=== PATIENT | female | born 1970 | race Caucasian/White ===

== ENCOUNTER 2020-05-30 12:44 | Inpatient (IN) | payer OTHER ==
[~2020-05-30 12:44] MED LIST: LISINOPRIL-HCT1 EAC1 PO; LOVAZA1 GM PO; ZYRTEC10 M3 PO
[2020-05-30 13:41] LABS: BASOPHIL 0.2 % (0-2); EOSINOPHIL 0.1 % (0-5); HCT 40.2 % (37.0-47.0); HGB 13.6 g/dl (12.5-16.0); LYMPHOCYTE 4.4 % (15-48); MCH 31.7 pg (25.0-31.0); MCHC 33.8 g/dL (32.0-36.0); MCV 93.7 fL (78.0-100.0); MONOCYTE 6.4 % (0-12); MPV 9.9 fL (6.0-9.5); NEUTROPHIL 87.9 % (41-80); NRBC 0; PLT 205 K/uL (150-400); RBC 4.29 M/uL (4.20-5.40); RDW 13.3 % (11.5-14.0); WBC 15.9 K/uL (4.0-10.5)
[2020-05-30 14:02] LABS: BUN/CREAT RATIO (CALC) 16.8 RATIO; CREATININE 0.95 mg/dL (0.51-0.95)
[2020-05-30 14:17] LABS: CORONAVIRUS 2019 SARS-COV-2 NEGATIVE (NEGATIVE); INFLUENZA A NAA NEGATIVE (NEGATIVE)
[2020-05-30 15:33] LABS: BILIRUBIN NEGATIVE (NEGATIVE); BLOOD 3+ Ery/uL (NEGATIVE); CLARITY CLEAR (CLEAR); COLOR YELLOW (YELLOW); GLUCOSE (U) 3+ mg/dL (NORMAL); LEUKOCYTES 2+ Leu/uL (NEGATIVE); NITRITE POSITIVE (NEGATIVE); PROTEIN 2+ mg/dL (NEGATIVE)
[2020-05-30 15:40] LABS: BACTERIA 3+; URINARY RBC 20-50; URINARY WBC TNTC
[2020-05-30] MEDS ORDERED: SINGULAIR10 MG PO (20:13)
[2020-05-30] MEDS ORDERED: FLEXERIL5 MG PO (20:14)
[2020-05-30] MEDS ORDERED: VITAMIN D3 (20:15)
[2020-05-30] MEDS ORDERED: METFORMIN HCL500 M3 PO (20:16)
[2020-05-31 16:27] LABS: HCT 36.7 % (37.0-47.0); HGB 11.7 g/dl (12.5-16.0); MCH 31.6 pg (25.0-31.0); MCHC 31.9 g/dL (32.0-36.0); MCV 99.2 fL (78.0-100.0); RBC 3.7 M/uL (4.20-5.40); RDW 13.6 % (11.5-14.0); WBC 11.7 K/uL (4.0-10.5)
[2020-05-31 16:54] LABS: LACTIC ACID 0.6 mmol/L (0.4-1.9)
[2020-05-31 17:00] LABS: ALBUMIN 2.7 g/dL (3.4-5.0); BILIRUBIN - TOTAL 0.3 mg/dL (0.2-1.0); BUN/CREAT RATIO (CALC) 16.5 RATIO; CREATININE 0.79 mg/dL (0.51-0.95); GLOBULIN (CALCULATION) 4.4 g/dL; POTASSIUM 4.3 mmol/L (3.5-5.1); TOTAL PROTEIN 7.1 g/dL (6.4-8.2)
[2020-06-01 05:04] LABS: HCT 36.5 % (37.0-47.0); HGB 11.6 g/dl (12.5-16.0); MCH 31.5 pg (25.0-31.0); MCHC 31.8 g/dL (32.0-36.0); MCV 99.2 fL (78.0-100.0); MPV 9.9 fL (6.0-9.5); RBC 3.68 M/uL (4.20-5.40); RDW 13.4 % (11.5-14.0); WBC 10.5 K/uL (4.0-10.5)
[2020-06-01 05:25] LABS: BUN/CREAT RATIO (CALC) 18.4 RATIO; CREATININE 0.76 mg/dL (0.51-0.95); POTASSIUM 4.4 mmol/L (3.5-5.1)
[2020-06-02 06:23] LABS: BASOPHIL 0.2 % (0-2); EOSINOPHIL 0 % (0-5); HCT 35.6 % (37.0-47.0); HGB 11.5 g/dl (12.5-16.0); LYMPHOCYTE 14.7 % (15-48); MCH 31.6 pg (25.0-31.0); MCHC 32.3 g/dL (32.0-36.0); MCV 97.8 fL (78.0-100.0); MONOCYTE 7.1 % (0-12); MPV 9.9 fL (6.0-9.5); NEUTROPHIL 77.1 % (41-80); NRBC 0; PLT 207 K/uL (150-400); RBC 3.64 M/uL (4.20-5.40); RDW 13.2 % (11.5-14.0); WBC 9.2 K/uL (4.0-10.5)
[2020-06-02 07:02] LABS: BUN/CREAT RATIO (CALC) 19.7 RATIO; C-REACTIVE PROTEIN 6.2 mg/dL (<=0.90); CREATININE 0.66 mg/dL (0.51-0.95); POTASSIUM 4.7 mmol/L (3.5-5.1)
[2020-06-02] MEDS ORDERED: PREDNISONE 20MG20 MG PO ×2 (07:57→12:24)
[2020-06-02] MEDS ORDERED: LEVAQUIN500 MG PO ×2 (08:00→12:24)
== END 2020-06-02 11:58 | disposition home or self-care (01) | DRG 871 ==
LOC: FER 12:44 → FMS 17:51 → FTCU 05-31 10:32
PROVIDERS: Allergy & Immunology Allergy; Emergency Medicine; ADMIT Hospitalist
PROC: 02HV33Z Insertion of Infusion Device into Superior Vena Cava, Percutaneous Approach (ICD-10-PCS; principal; 2020-05-31)
PROC: B548ZZA Ultrasonography of Superior Vena Cava, Guidance (ICD-10-PCS; 2020-05-31)
DX: A41.9 Sepsis, unspecified organism (principal); G93.41 Metabolic encephalopathy; J96.91 Respiratory failure, unspecified with hypoxia; N39.0 Urinary tract infection, site not specified; E66.2 Morbid (severe) obesity with alveolar hypoventilation; E87.3 Alkalosis; Z68.41 Body mass index [BMI] 40.0-44.9, adult; E11.9 Type 2 diabetes mellitus without complications; Z20.822 Contact with and (suspected) exposure to COVID-19; D25.9 Leiomyoma of uterus, unspecified; J44.9 Chronic obstructive pulmonary disease, unspecified; Z77.22 Contact with and (suspected) exposure to environmental tobacco smoke (acute) (chronic); Z98.51 Tubal ligation status; Z98.890 Other specified postprocedural states
CPT/HCPCS: 36415; 36600; 70450; 71045; 71275; 80048; 80053; 81001; 82140; 82728; 82803; 82962; 83605; 84145; 84439; 84443; 84484; 85025; 86140; 87040; 94010; 94640; 94660; J0696; J1170; J1650; J2405; J7030; J7512; Q9967; U0002